=== PATIENT | female | born 1955 | race Caucasian/White ===

== ENCOUNTER 2023-10-07 22:00 | Emergency (ER) | payer MEDICAID, OTHER ==
[~2023-10-07] VITALS: Ht 160 cm; Wt 89.1 kg
[2023-10-07 22:04] VITALS: TEMP 98.5
[2023-10-07] MEDS ORDERED: LIDOcaine 1% W/epiNEPHrine 1:100,000 20ml vial IJ ONE (22:15)
[2023-10-07] MEDS: acetaminophen 325mg tablet PO ONE (22:38)
[2023-10-07] MEDS: TETanus/Pertussis (Acell)/Diphther VAC/PF (Tdap-Adult) 0.5ml syringe IMVAC ONE (22:39)
[2023-10-07 23:47] VITALS: BP 120/41; PULSE 69; RESP 20; O2SAT 94
== END 2023-10-07 23:50 | disposition home or self-care (01) ==
LOC: ER 22:01
DX: S01.111A Laceration without foreign body of right eyelid and periocular area, initial encounter (principal); S09.90XA Unspecified injury of head, initial encounter; Z88.0 Allergy status to penicillin; W22.8XXA Striking against or struck by other objects, initial encounter; Y93.89 Activity, other specified; Y92.89 Other specified places as the place of occurrence of the external cause; Y99.8 Other external cause status
CPT/HCPCS: 12011; 70450; 90471; 90715; 99285

== ENCOUNTER 2023-10-20 17:20 | Emergency (ER) | payer MEDICARE, OTHER ==
[~2023-10-20] VITALS: Ht 160 cm; Wt 72.8 kg
[2023-10-20 17:21] VITALS: PULSE 101; RESP 16; TEMP 98; O2SAT 98
== END 2023-10-20 17:38 | disposition home or self-care (01) ==
LOC: ER 17:21
DX: S01.111D Laceration without foreign body of right eyelid and periocular area, subsequent encounter (principal); Z88.0 Allergy status to penicillin; X58.XXXD Exposure to other specified factors, subsequent encounter
CPT/HCPCS: 99281